=== PATIENT | female | born 1965 | race Caucasian/White ===

== ENCOUNTER 2018-03-10 08:56 | Day surgery (SDC) | payer OTHER ==
[2018-03-10] MEDS ORDERED: PROPOFOL 20 ML ×2 (10:13→10:31)
== END 2018-03-10 13:11 | disposition home or self-care (01) ==
LOC: GIL 08:56
DX: Z12.11 Encounter for screening for malignant neoplasm of colon (principal); K29.70 Gastritis, unspecified, without bleeding; K64.4 Residual hemorrhoidal skin tags; E66.01 Morbid (severe) obesity due to excess calories; Z68.41 Body mass index [BMI] 40.0-44.9, adult
CPT/HCPCS: 43239; 88305